=== PATIENT | female | born 1995 | race Caucasian/White ===

== ENCOUNTER 2017-01-07 17:09 | Emergency (ER) | payer OTHER ==
--- NOTE | 2017-01-07 20:39 | ED NURSING NOTES ---
Clinical Report - Nurses [facility] [address] [place] [address] 01/07/2017 17:12 [id number] Triage time 18:20 Jan 07 2017. --18:26 Sachin Gutierrez R.N. Acuity: LEVEL 3. Chief Complaint: ABDOMINAL PAIN and (10 weeks ). Alert. RADHA COMA SCORE: Radha Coma Scale: 15- eyes open spontaneously (4); best verbal response- oriented x 4 (5); best motor response- obeys commands (6). --18:37 Sachin Gutierrez R.N. 18:29 01/07/17. BP: 113/71. HR: 81. RR: 16. O2 saturation: 100% on room air. Temp: 99.9 F. Pain level now: 10/21. Additional comments: Abd cramping. --18:37 Sachin Gutierrez R.N. Weight: 67.1 kg stated. Height/Length: 64 inches Per Patient. BMI: 25.4. --18:38 Sachin Gutierrez R.N. Medications Vitamins Oral 1 pill, daily. --18:32 Sachin Gutierrez R.N. Medication/allergy information source: the patient. --18:37 Sachin Gutierrez R.N. Allergies Penicillins.(rash, swelling) --18:33 Sachin Gutierrez R.N. History Arrived by private vehicle. Historian: patient. Accompanied by family. --18:26 Sachin Gutierrez R.N. Unaccompanied. Primary physician (Duong Taylor Everett). ( Abdominal Pain/Cramping with bleeding. Pt states that she is 10 weeks .). This started today. Onset. (15 hours ago). She has had abdominal pain. ( Vaginal Bleeding (described by pt as "moderate")). Treatment RUG CUTTER: None. PAST MEDICAL HX: Negative. Immunizations: status is unknown. Currently . In 1st trimester. confirmed with home test and sonogram. Has had care in clinic. SOCIAL HX: Former smoker, end date 2013. No alcohol use or drug use. No recent travel. No infectious disease exposure. No known contact with a sick individual. ABUSE ASSESSMENT: No report of abuse. FALL RISK ASSESSMENT: Fall risk assessment completed. No fall risk identified. NUTRITIONAL RISK ASSESSMENT: The nutritional risk assessment revealed no deficiencies. FUNCTIONAL ASSESSMENT: Functional assessment: no impairments noted. LEARNING NEEDS ASSESSMENT: The learning needs assessment revealed no barriers. SKIN INTEGRITY ASSESSMENT: Skin integrity risk assessment completed. No skin integrity risk identified. --18:37 Sachin Gutierrez R.N. ADDITIONAL SURGERIES: Adenoidectomy. Tonsillectomy. --18:34 Sachin Gutierrez R.N. Interventions ID band on patient. To treatment room. --18:37 Sachin Gutierrez R.N. Allergy band on patient. --18:37 Sachin Gutierrez R.N. PHYSICAL ASSESSMENT Ambulatory to room. GENERAL / NEURO / PSYCH: Alert. Oriented X 4. HEENT: Mucous membranes are pink. RESPIRATORY: Respirations not labored. CVS: Cardiac rhythm: (RRR). Capillary refill less than 2 seconds. GI / : Abdomen soft. Abdominal tenderness in the suprapubic area and lower abdomen. SKIN: Skin is warm and dry. --18:38 Sachin Gutierrez R.N. NURSING PROGRESS NOTES Patient gowned. Reassurance given. Patient identifiers checked. Call light placed in reach. Side rails up x 1. Bed placed in lowest position. Brakes of bed on. Patient ready for evaluation- chart flagged and ED physician notified. --18:39 Sachin Gutierrez R.N. 18:45 01/07/17. Patient ID band checked for patient name, birthdate and medical record number: patient confirmed. Instructions provided to collect clean catch urine and patient verbalized understanding. Clean catch urine collected with return of yellow-colored clear urine; odor is normal; sample sent to lab for urinalysis, culture and HCG. Specimen labeled in the presence of the patient. --18:48 Sachin Gutierrez R.N. 21:30- first contact with pt. pt given dc instructions and reassurance. --22:37 Na Torre R.N. DISPOSITION / DISCHARGE 21:35. Condition at departure: improved and stable. No learning barriers present. Discharge instructions provided and reviewed with the patient. Reviewed referral to an wellness assistant. Meter Technician verbalized understanding. Written instructions provided in Libyan. The patient was discharged home and accompanied by pipe joints supervisor. She left the Emergency Department ambulatory and via private vehicle. Meter Technician driving. --22:36 Na Torre R.N. 21:35 01/07/17. BP: 117/66. HR: 81. RR: 18. O2 saturation: 99%. Temp: deferred. Pain level now: 09/23. --22:36 Na Torre R.N. Locked/Released at 01/07/2017 22:37 by aN Torre R.N.
--- NOTE | 2017-01-07 20:39 | ED NURSING NOTES ---
Clinical Report - Nurses [facility] [address] [place] [address] 01/07/2017 17:12 [id number] Triage time 18:20 Jan 07 2017. --18:26 Sachin Gutierrez R.N. Acuity: LEVEL 3. Chief Complaint: ABDOMINAL PAIN and (10 weeks ). Alert. RADHA COMA SCORE: Radha Coma Scale: 15- eyes open spontaneously (4); best verbal response- oriented x 4 (5); best motor response- obeys commands (6). --18:37 Sachin Gutierrez R.N. 18:29 01/07/17. BP: 113/71. HR: 81. RR: 16. O2 saturation: 100% on room air. Temp: 99.9 F. Pain level now: 10/21. Additional comments: Abd cramping. --18:37 Sachin Gutierrez R.N. Weight: 67.1 kg stated. Height/Length: 64 inches Per Patient. BMI: 25.4. --18:38 Sachin Gutierrez R.N. Medications Vitamins Oral 1 pill, daily. --18:32 Sachin Gutierrez R.N. Medication/allergy information source: the patient. --18:37 Sachin Gutierrez R.N. Allergies Penicillins.(rash, swelling) --18:33 Sachin Gutierrez R.N. History Arrived by private vehicle. Historian: patient. Accompanied by family. --18:26 Sachin Gutierrez R.N. Unaccompanied. Primary physician (Duong Taylor Everett). ( Abdominal Pain/Cramping with bleeding. Pt states that she is 10 weeks .). This started today. Onset. (15 hours ago). She has had abdominal pain. ( Vaginal Bleeding (described by pt as "moderate")). Treatment PARTS REPRESENTATIVE: None. PAST MEDICAL HX: Negative. Immunizations: status is unknown. Currently . In 1st trimester. confirmed with home test and sonogram. Has had care in clinic. SOCIAL HX: Former smoker, end date 2013. No alcohol use or drug use. No recent travel. No infectious disease exposure. No known contact with a sick individual. ABUSE ASSESSMENT: No report of abuse. FALL RISK ASSESSMENT: Fall risk assessment completed. No fall risk identified. NUTRITIONAL RISK ASSESSMENT: The nutritional risk assessment revealed no deficiencies. FUNCTIONAL ASSESSMENT: Functional assessment: no impairments noted. LEARNING NEEDS ASSESSMENT: The learning needs assessment revealed no barriers. SKIN INTEGRITY ASSESSMENT: Skin integrity risk assessment completed. No skin integrity risk identified. --18:37 Sachin Gutierrez R.N. ADDITIONAL SURGERIES: Adenoidectomy. Tonsillectomy. --18:34 Sachin Gutierrez R.N. Interventions ID band on patient. To treatment room. --18:37 Sachin Gutierrez R.N. Allergy band on patient. --18:37 Sachin Gutierrez R.N. PHYSICAL ASSESSMENT Ambulatory to room. GENERAL / NEURO / PSYCH: Alert. Oriented X 4. HEENT: Mucous membranes are pink. RESPIRATORY: Respirations not labored. CVS: Cardiac rhythm: (RRR). Capillary refill less than 2 seconds. GI / : Abdomen soft. Abdominal tenderness in the suprapubic area and lower abdomen. SKIN: Skin is warm and dry. --18:38 Sachin Gutierrez R.N. NURSING PROGRESS NOTES Patient gowned. Reassurance given. Patient identifiers checked. Call light placed in reach. Side rails up x 1. Bed placed in lowest position. Brakes of bed on. Patient ready for evaluation- chart flagged and ED physician notified. --18:39 Sachin Gutierrez R.N. 18:45 01/07/17. Patient ID band checked for patient name, birthdate and medical record number: patient confirmed. Instructions provided to collect clean catch urine and patient verbalized understanding. Clean catch urine collected with return of yellow-colored clear urine; odor is normal; sample sent to lab for urinalysis, culture and HCG. Specimen labeled in the presence of the patient. --18:48 Sachin Gutierrez R.N. 21:30- first contact with pt. pt given dc instructions and reassurance. --22:37 Na Torre R.N. DISPOSITION / DISCHARGE 21:35. Condition at departure: improved and stable. No learning barriers present. Discharge instructions provided and reviewed with the patient. Reviewed referral to an insurance analyst. Component Inspector verbalized understanding. Written instructions provided in Maltese. The patient was discharged home and accompanied by historic sites registrar. She left the Emergency Department ambulatory and via private vehicle. Component Inspector driving. --22:36 Na Torre R.N. 21:35 01/07/17. BP: 117/66. HR: 81. RR: 18. O2 saturation: 99%. Temp: deferred. Pain level now: 09/23. --22:36 Na Torre R.N. Locked/Released at 01/07/2017 22:37 by Na Torre R.N.
--- NOTE | 2017-01-07 20:39 | ED CLINICAL REPORT ---
Clinical Report - Physicians/Mid Levels [facility] [address] [place] [address] 01/07/2017 17:12 Patient: JENNIFER DALY Time Seen: 18:40; initial patient contact. Arrived- By private vehicle. Historian- patient. HISTORY OF PRESENT ILLNESS Chief Complaint: VAGINAL BLEEDING. This started today Currently . In 1st trimester. confirmed with home test and sonogram. Has had care in clinic. and still present (mild). The symptoms are described as mild. Modifying factors- relieved by lying down. The patient has had abnormal bleeding described as spotting 8 hours ago. No abdominal pain. Last normal menstrual period- 10 weeks ago. Currently : 10 weeks. Similar symptoms previously: None. Recent medical care: Not recently seen/assessed. REVIEW OF SYSTEMS No nausea or diarrhea. All systems otherwise negative, except as recorded above. PAST HISTORY See nurses notes. Problems: . Medications: Vitamins Oral 1 pill, daily. Allergies: Penicillins.(rash, swelling). SOCIAL HISTORY Never smoker. No alcohol use or drug use. FAMILY HISTORY Negative. ADDITIONAL NOTES The nursing notes have been reviewed with agreement regarding the chief complaint, HPI, ROS, PMH and patient medications and allergies. PHYSICAL EXAM Vital Signs: 01/07/2017 21:35 BP: 117/66. HR: 81. RR: 18. O2 saturation: 99%. Pain level now: 2/10. Have been reviewed. Appearance: Alert. Oriented X3. No acute distress. HEENT: Normal external inspection. CVS: Heart sounds normal. Respiratory: No respiratory distress. Breath sounds normal. Abdomen: Soft and nontender. Bowel sounds normal. No organomegaly. No mass. : External inspection normal. Speculum exam normal. No vaginal bleeding. Skin: No rash. Extremities: No lower extremity edema. Neuro: Oriented X 3. LABS, X-RAYS, AND EKG Pelvic Sonogram: A subchorionic hemorrhage is present. Name: Jennifer Daly : 1995 MR#: [id number] Ordering Provider: FABRICE CURTIS Exam(s): US OB 1ST TRIMESTER W/TRANSVAG Date of Exam: 01/07/2017 __ PROCEDURE: US OB 1ST TRIMESTER W/TRANSVAG INDICATION: ABNORMAL BLEEDING TECHNIQUE: Ramirez scale, color, and spectral Doppler transabdominal and endovaginal sonographic images of the first trimester gravid uterus were obtained. COMPARISON: None. FINDINGS: TRANSABDOMINAL SCANS: Single intrauterine gestational sac with pole. Subchorionic hemorrhage. Closed cervix measures 3.5 cm. Heart rate 173 bpm. Normal maternal kidneys. TRANSVAGINAL SCANS: Subchorionic hemorrhage measures 4.4 x 2.9 x 2.7 cm. Yolk sac present. [place]-rump length 4.3 cm, and 11 weeks 1 day. ABDELRAHMAN 07/28/2017. IMPRESSION: 1. Single live intrauterine 11 weeks 1 day 2. 4.4 x 2.9 x 2.7 cm subchorionic hemorrhage 3. ABDELRAHMAN 07/28/2017. Electronically Final signed by:Maldonado Malin MD 01/07/2017 9:32:12 PM Technologist: PURA. The study was independently viewed by me, interpreted by the radiologist and discussed with the radiologist. Laboratory Tests: UA-Culture if indicated: (DELMIS: 01/07/2017 18:45) ( MsgRcvd 01/07/2017 19:12) Final results Test Result Flag Units (Reference) URINE COLOR YELLOW URINE APPEARANCE CLEAR URINE GLUCOSE NEGATIVE (NEGATIVE) URINE BILIRUBIN NEGATIVE (NEGATIVE) URINE KETONE TRACE (NEGATIVE) URINE SPECIFIC GRAVITY 1.020 (1.010-1.030) URINE PH 6.0 (5.0-8.0) URINE PROTEIN NEGATIVE (NEGATIVE) URINE UROBILINOGEN 0.2 EU/dL (0.2-1.0) URINE NITRITE NEGATIVE (NEGATIVE) URINE BLOOD 1+ (NEGATIVE) URINE LEUK ESTERASE NEGATIVE (NEGATIVE) URINE RBC 0-1 rbc/hpf (0-1) URINE WBC 0-1 wbc/hpf (0-1) URINE EPITHELIAL CELLS 0-1 EPI/hpf (0-5) URINE BACTERIA FEW (1+) (NONE SEEN) URINE COMMENT CULT NOT INDICATED URINE CULTURES ARE SET-UP BASED ON THE FOLLOWING CRITERIA:POSITIVE NITRITEPOSITIVE LEUKOCYTE ESTERASEGREATER THAN 10 WHITE BLOOD CELLSMODERATE (2+) OR GREATER BACTERIA Urine: (DELMIS: 01/07/2017 18:45) ( [facility] 01/07/2017 19:04) Final results Test Result Flag Units (Reference) URINE POSITIVE CBC w Diff: (DELMIS: 01/07/2017 20:50) ( [facility] 01/07/2017 21:00) Final results Test Result Flag Units (Reference) WHITE BLOOD COUNT 7.9 K/uL (4.5-11.5) RED BLOOD COUNT 4.71 M/uL (4.00-5.20) HEMOGLOBIN 13.1 gm/dL (12.0-16.0) HEMATOCRIT 39.2 % (36.0-46.0) MEAN CELL VOLUME 83 fL (80-100) MEAN CORPUSCULAR HGB 28 pg (26-34) MEAN CORPUSCULAR HGB CONC 33 g/dL (31-37) RED CELL DISTRIBUTION WIDTH 13.0 % (11.6-14.8) PLATELET COUNT 330 K/uL (150-400) NEUTROPHIL % 53.1 % (50-75) LYMPH % 37.4 % (25-40) MONO % 8.7 % (3-14) EOSINOPHIL % 0.6 % (0-4) BASOPHIL % 0.2 % (0-2) Serum Quantitative: (DELMIS: 01/07/2017 20:50) ( [facility] [place]/07/[place] 21:48) Final results Test Result Flag Units (Reference) BETA HCG, QUANTITATIVE 26641 mIU/mL REFERENCE RANGE:Adult Males: <2 mIU/mLNon- Females: <6 mIU/mL Females:Approximate Approximate hCGGestational Age Range (mIU/mL) 0-1 week 0-501-2 weeks 40-3002-3 weeks 100-25528-7 weeks 500-87058-1 months 5,000-200,0002-3 months 10,000-100,0002nd trimester 3,000-50,0003rd trimester 1,000-50,000 . PROGRESS AND PROCEDURES Course of Care: Patient is stable. Physical exam findings are improved. Symptoms better. Patient/family counseled. CLINICAL IMPRESSION First trimester ; positive test in emergency department. Ultrasound demonstrated an intrauterine . (small mateo gestational bleed.). Threatened . Ultrasound demonstrated an intrauterine . INSTRUCTIONS No strenuous activity. Rest. Drink plenty of fluids. No sexual contact. Do not smoke. No alcohol. Warnings: Further evaluation is necessary. It is very important to follow up with a physician. Follow-up: Follow up with your doctor Monday even if well. Call for an appointment. Reason for referral: vaginal bleeding with 10 week . Understanding of the discharge instructions verbalized by patient. (Electronically signed by Fabrice Curtis PA-C 01/08/2017 0:25)
--- NOTE | 2017-01-07 20:39 | ED ORDER SUMMARY ---
..... Patient: JENNIFER DALY OrderSheet [facility] VisitID: [id number] [place] [address] 21y, F Registration Date/Time: 01/07/2017 ORDER SHEET Weight: 67.1 kg (stated) Allergies: Penicillins GENERAL ORDERS: UA-Culture if indicated Urgent (18:47 01/07/2017 JRomanelli R.N. verbal order read back to ABlanchette PA-C) (18:47 JRomanelli R.N.) Urine Urgent (18:47 01/07/2017 JRomanelli R.N. verbal order read back to ABlanchette PA-C) (18:47 JRomanelli R.N.) CBC w Diff Urgent (18:51 01/07/2017 ABlanchette PA-C) (Ack 18:54 IJurca ER Tech1) (20:54 JSanders R.N.) Serum Quantitative Urgent (18:51 01/07/2017 ABlanchette PA-C) (Ack 18:54 IJurca ER Tech1) (20:54 JSanders R.N.) US OB 1st Trimester w Transvag (10 weeks. ) (10 week IUP, started bleeding today and cramping.) Urgent (18:59 01/07/2017 ABlanchette PA-C) (Ack 19:02 IJurca ER Tech1) (20:34 RFay) MEDICATION ORDERS: IV FLUIDS: ORDER SHEET NOTES: [Electronically signed by Na Torre R.N. (22:37 01/07/2017)] [Electronically signed by Savanah Carpenter PA-C (00:25 01/08/2017)] [Electronically locked/signed by Na Torre R.N. (22:37 01/07/2017)]
--- NOTE | 2017-01-07 20:39 | ED ORDER SUMMARY ---
..... Patient: JENNIFER DALY OrderSheet [facility] VisitID: [id number] [place] [address] 21y, F Registration Date/Time: 01/07/2017 ORDER SHEET Weight: 67.1 kg (stated) Allergies: Penicillins GENERAL ORDERS: UA-Culture if indicated Urgent (18:47 01/07/2017 JRomanelli R.N. verbal order read back to ABlanchette PA-C) (18:47 JRomanelli R.N.) Urine Urgent (18:47 01/07/2017 JRomanelli R.N. verbal order read back to ABlanchette PA-C) (18:47 JRomanelli R.N.) CBC w Diff Urgent (18:51 01/07/2017 ABlanchette PA-C) (Ack 18:54 IJurca ER Tech1) (20:54 JSanders R.N.) Serum Quantitative Urgent (18:51 01/07/2017 ABlanchette PA-C) (Ack 18:54 IJurca ER Tech1) (20:54 JSanders R.N.) US OB 1st Trimester w Transvag (10 weeks. ) (10 week IUP, started bleeding today and cramping.) Urgent (18:59 01/07/2017 ABlanchette PA-C) (Ack 19:02 IJurca ER Tech1) (20:34 RFay) MEDICATION ORDERS: IV FLUIDS: ORDER SHEET NOTES: [Electronically signed by Na Torre R.N. (22:37 01/07/2017)] [Electronically signed by Savanah Carpenter PA-C (00:25 01/08/2017)] [Electronically locked/signed by Na Torre R.N. (22:37 01/07/2017)]
--- NOTE | 2017-01-07 20:39 | ED CLINICAL REPORT ---
Clinical Report - Physicians/Mid Levels [facility] [address] [place] [address] 01/07/2017 17:12 Patient: JENNIFER DALY Time Seen: 18:40; initial patient contact. Arrived- By private vehicle. Historian- patient. HISTORY OF PRESENT ILLNESS Chief Complaint: VAGINAL BLEEDING. This started today Currently . In 1st trimester. confirmed with home test and sonogram. Has had care in clinic. and still present (mild). The symptoms are described as mild. Modifying factors- relieved by lying down. The patient has had abnormal bleeding described as spotting 8 hours ago. No abdominal pain. Last normal menstrual period- 10 weeks ago. Currently : 10 weeks. Similar symptoms previously: None. Recent medical care: Not recently seen/assessed. REVIEW OF SYSTEMS No nausea or diarrhea. All systems otherwise negative, except as recorded above. PAST HISTORY See nurses notes. Problems: . Medications: Vitamins Oral 1 pill, daily. Allergies: Penicillins.(rash, swelling). SOCIAL HISTORY Never smoker. No alcohol use or drug use. FAMILY HISTORY Negative. ADDITIONAL NOTES The nursing notes have been reviewed with agreement regarding the chief complaint, HPI, ROS, PMH and patient medications and allergies. PHYSICAL EXAM Vital Signs: 01/07/2017 21:35 BP: 117/66. HR: 81. RR: 18. O2 saturation: 99%. Pain level now: 2/10. Have been reviewed. Appearance: Alert. Oriented X3. No acute distress. HEENT: Normal external inspection. CVS: Heart sounds normal. Respiratory: No respiratory distress. Breath sounds normal. Abdomen: Soft and nontender. Bowel sounds normal. No organomegaly. No mass. : External inspection normal. Speculum exam normal. No vaginal bleeding. Skin: No rash. Extremities: No lower extremity edema. Neuro: Oriented X 3. LABS, X-RAYS, AND EKG Pelvic Sonogram: A subchorionic hemorrhage is present. Name: Jennifer Daly : 1995 MR#: [id number] Ordering Provider: FABRICE CURTIS Exam(s): US OB 1ST TRIMESTER W/TRANSVAG Date of Exam: 01/07/2017 __ PROCEDURE: US OB 1ST TRIMESTER W/TRANSVAG INDICATION: ABNORMAL BLEEDING TECHNIQUE: Ramirez scale, color, and spectral Doppler transabdominal and endovaginal sonographic images of the first trimester gravid uterus were obtained. COMPARISON: None. FINDINGS: TRANSABDOMINAL SCANS: Single intrauterine gestational sac with pole. Subchorionic hemorrhage. Closed cervix measures 3.5 cm. Heart rate 173 bpm. Normal maternal kidneys. TRANSVAGINAL SCANS: Subchorionic hemorrhage measures 4.4 x 2.9 x 2.7 cm. Yolk sac present. [place]-rump length 4.3 cm, and 11 weeks 1 day. ABDELRAHMAN 07/28/2017. IMPRESSION: 1. Single live intrauterine 11 weeks 1 day 2. 4.4 x 2.9 x 2.7 cm subchorionic hemorrhage 3. ABDELRAHMAN 07/28/2017. Electronically Final signed by:Maldonado Malin MD 01/07/2017 9:32:12 PM Technologist: PURA. The study was independently viewed by me, interpreted by the radiologist and discussed with the radiologist. Laboratory Tests: UA-Culture if indicated: (DELMIS: 01/07/2017 18:45) ( MsgRcvd 01/07/2017 19:12) Final results Test Result Flag Units (Reference) URINE COLOR YELLOW URINE APPEARANCE CLEAR URINE GLUCOSE NEGATIVE (NEGATIVE) URINE BILIRUBIN NEGATIVE (NEGATIVE) URINE KETONE TRACE (NEGATIVE) URINE SPECIFIC GRAVITY 1.020 (1.010-1.030) URINE PH 6.0 (5.0-8.0) URINE PROTEIN NEGATIVE (NEGATIVE) URINE UROBILINOGEN 0.2 EU/dL (0.2-1.0) URINE NITRITE NEGATIVE (NEGATIVE) URINE BLOOD 1+ (NEGATIVE) URINE LEUK ESTERASE NEGATIVE (NEGATIVE) URINE RBC 0-1 rbc/hpf (0-1) URINE WBC 0-1 wbc/hpf (0-1) URINE EPITHELIAL CELLS 0-1 EPI/hpf (0-5) URINE BACTERIA FEW (1+) (NONE SEEN) URINE COMMENT CULT NOT INDICATED URINE CULTURES ARE SET-UP BASED ON THE FOLLOWING CRITERIA:POSITIVE NITRITEPOSITIVE LEUKOCYTE ESTERASEGREATER THAN 10 WHITE BLOOD CELLSMODERATE (2+) OR GREATER BACTERIA Urine: (DELMIS: 01/07/2017 18:45) ( [facility] 01/07/2017 19:04) Final results Test Result Flag Units (Reference) URINE POSITIVE CBC w Diff: (DELMIS: 01/07/2017 20:50) ( [facility] 01/07/2017 21:00) Final results Test Result Flag Units (Reference) WHITE BLOOD COUNT 7.9 K/uL (4.5-11.5) RED BLOOD COUNT 4.71 M/uL (4.00-5.20) HEMOGLOBIN 13.1 gm/dL (12.0-16.0) HEMATOCRIT 39.2 % (36.0-46.0) MEAN CELL VOLUME 83 fL (80-100) MEAN CORPUSCULAR HGB 28 pg (26-34) MEAN CORPUSCULAR HGB CONC 33 g/dL (31-37) RED CELL DISTRIBUTION WIDTH 13.0 % (11.6-14.8) PLATELET COUNT 330 K/uL (150-400) NEUTROPHIL % 53.1 % (50-75) LYMPH % 37.4 % (25-40) MONO % 8.7 % (3-14) EOSINOPHIL % 0.6 % (0-4) BASOPHIL % 0.2 % (0-2) Serum Quantitative: (DELMIS: 01/07/2017 20:50) ( [facility] [place] 01/07/2017 21:48) Final results Test Result Flag Units (Reference) BETA HCG, QUANTITATIVE 94083 mIU/mL REFERENCE RANGE:Adult Males: <2 mIU/mLNon- Females: <6 mIU/mL Females:Approximate Approximate hCGGestational Age Range (mIU/mL) 0-1 week 0-501-2 weeks 40-3002-3 weeks 100-48816-7 weeks 500-68591-0 months 5,000-200,0002-3 months 10,000-100,0002nd trimester 3,000-50,0003rd trimester 1,000-50,000 . PROGRESS AND PROCEDURES Course of Care: Patient is stable. Physical exam findings are improved. Symptoms better. Patient/family counseled. CLINICAL IMPRESSION First trimester ; positive test in emergency department. Ultrasound demonstrated an intrauterine . (small mateo gestational bleed.). Threatened . Ultrasound demonstrated an intrauterine . INSTRUCTIONS No strenuous activity. Rest. Drink plenty of fluids. No sexual contact. Do not smoke. No alcohol. Warnings: Further evaluation is necessary. It is very important to follow up with a physician. Follow-up: Follow up with your doctor Monday even if well. Call for an appointment. Reason for referral: vaginal bleeding with 10 week . Understanding of the discharge instructions verbalized by patient. (Electronically signed by Fabrice Curtis PA-C 01/08/2017 0:25)
--- NOTE | 2017-01-07 21:32 | DIAGNOSTIC IMAGING REPORT ---
PROCEDURE: US OB 1ST TRIMESTER W/TRANSVAG INDICATION: ABNORMAL BLEEDING TECHNIQUE: Ramirez scale, color, and spectral Doppler transabdominal and endovaginal sonographic images of the first trimester gravid uterus were obtained. COMPARISON: None. FINDINGS: TRANSABDOMINAL SCANS: Single intrauterine gestational sac with pole. Subchorionic hemorrhage. Closed cervix measures 3.5 cm. Heart rate 173 bpm. Normal maternal kidneys. TRANSVAGINAL SCANS: Subchorionic hemorrhage measures 4.4 x 2.9 x 2.7 cm. Yolk sac present. [place]-rump length 4.3 cm, and 11 weeks 1 day. ABDELRAHMAN 07/28/2017. IMPRESSION: 1. Single live intrauterine 11 weeks 1 day 2. 4.4 x 2.9 x 2.7 cm subchorionic hemorrhage 3. ABDELRAHMAN 07/28/2017.
--- NOTE | 2017-01-08 00:25 | ED DISCHARGE INSTRUCTIONS ---
Patient: JENNIFER DALY General Instructions [facility] VisitID: [id number] [address] [place] [address] 21y, F Registration Date/Time: 01/07/2017 First trimester ; positive test in emergency department. Ultrasound demonstrated an intrauterine . (small mateo gestational bleed.). Threatened . Ultrasound demonstrated an intrauterine . INSTRUCTIONS No strenuous activity. Rest. Drink plenty of fluids. No sexual contact. Do not smoke. No alcohol. Warnings: Further evaluation is necessary. It is very important to follow up with a physician. Follow-up: Follow up with your doctor Monday even if well. Call for an appointment. Reason for referral: vaginal bleeding with 10 week . Understanding of the discharge instructions verbalized by patient. No strenuous activity. Rest. (Electronically signed by Savanah Carpenter PA-C 01/08/2017 0:25)
--- NOTE | 2017-01-08 00:25 | ED MAR SUMMARY ---
..... Medication Administration Record [facility] [address] [place], [place] [id number] Patient: JENNIFER DALY Visit ID: [id number] 21y, F Weight: 67.1 kg Height/Length: 64 in BMI: 25.4 ALLERGIES: Penicillins
--- NOTE | 2017-01-08 00:25 | ED MED RECONCILIATION SUMMARY ---
Patient: JENNIFER DALY Medication Reconciliation Report [facility] VisitID: [id number] [address] [place] [place] [address] 21y, F Registration Date/Time: 01/07/2017 Weight: 67.1 kg Height/Length: 64 in. BMI: 25.4 ALLERGIES: Penicillins The patient's Home Medications are listed below: THE FOLLOWING MEDICATIONS NEED TO BE RECONCILED: Vitamins Oral 1 pill, daily The source(s) of the original Home Medication information: patient The following Medications were given to the patient in the Emergency Department: None. The following Medications were prescribed to the patient: None.
--- NOTE | 2017-01-08 00:25 | ED MED RECONCILIATION SUMMARY ---
Patient: JENNIFER DALY Medication Reconciliation Report [facility] VisitID: [id number] [address] [place] [place] [address] 21y, F Registration Date/Time: 01/07/2017 Weight: 67.1 kg Height/Length: 64 in. BMI: 25.4 ALLERGIES: Penicillins The patient's Home Medications are listed below: THE FOLLOWING MEDICATIONS NEED TO BE RECONCILED: Vitamins Oral 1 pill, daily The source(s) of the original Home Medication information: patient The following Medications were given to the patient in the Emergency Department: None. The following Medications were prescribed to the patient: None.
--- NOTE | 2017-01-08 00:25 | ED MAR SUMMARY ---
..... Medication Administration Record [facility] [address] [place], [place] [id number] Patient: JENNIFER DALY Visit ID: [id number] 21y, F Weight: 67.1 kg Height/Length: 64 in BMI: 25.4 ALLERGIES: Penicillins
--- NOTE | 2017-01-08 00:25 | ED DISCHARGE INSTRUCTIONS ---
Patient: JENNIFER DALY General Instructions [facility] VisitID: [id number] [address] [place] [address] 21y, F Registration Date/Time: 01/07/2017 First trimester ; positive test in emergency department. Ultrasound demonstrated an intrauterine . (small mateo gestational bleed.). Threatened . Ultrasound demonstrated an intrauterine . INSTRUCTIONS No strenuous activity. Rest. Drink plenty of fluids. No sexual contact. Do not smoke. No alcohol. Warnings: Further evaluation is necessary. It is very important to follow up with a physician. Follow-up: Follow up with your doctor Monday even if well. Call for an appointment. Reason for referral: vaginal bleeding with 10 week . Understanding of the discharge instructions verbalized by patient. No strenuous activity. Rest. (Electronically signed by Savanah Carpenter PA-C 01/08/2017 0:25)
== END 2017-01-07 21:38 | disposition home or self-care (01) ==
LOC: ED SRH 17:09
DX: O20.0 Threatened abortion (principal); Z3A.10 10 weeks gestation of pregnancy; Z79.899 Other long term (current) drug therapy; Z88.0 Allergy status to penicillin
CPT/HCPCS: 90004; 90074; 90197; 93070; 95059